=== PATIENT | male | born 1995 | race Caucasian/White ===

== ENCOUNTER 2021-07-12 10:32 | Emergency (ER) | payer MEDICAID, SELFPAY ==
--- NOTE | ~2021-07-12 | XR_ITS ---
EXAMINATION: XR KNEE, RIGHT CLINICAL INFORMATION: Pain status post injury COMPARISON: None TECHNIQUE: Four views of the right knee. FINDINGS: No acute visible fracture or dislocation. A fabella is noted in the posterior compartment. Joint spaces and alignment are maintained. Trace knee joint effusion. Soft tissues are unremarkable. XR/XR knee RT 4V IMPRESSION: 1. No acute visible fracture or dislocation. 2. Trace knee joint effusion.
[2021-07-12 11:41] VITALS: BP 138/83; PULSE 74; RESP 16; TEMP 36.3; O2SAT 97; BMI 46.2
--- NOTE | 2021-07-12 13:27 | ED.LOWEXIN ---
HPI - Extremity Injury (Lower) General Chief Complaint: Extremity Injury, Lower Stated Complaint: fall - rt knee pain Time Seen by Provider: 07/12/21 13:25 Source: patient Mode of arrival: ambulatory Limitations: no limitations History of Present Illness HPI Narrative: 26 years old male came in for evaluation of her right knee pain after fell a week ago. Patient is able to ambulate with bearing weight. Related Data Allergies Allergy/AdvReac Type Severity Reaction Status Date / Time No Known Allergies Allergy Unverified 11/18/19 16:54 Review of Systems Review of Systems: All other systems are reviewed and are negative Constitutional: Reports as per HPI and Reports no additional constitutional complaints Eyes: Reports as per HPI and Reports no additional eye complaints Reports system reviewed and no additional complaints, except as documented Cardiovascular: Reports as per HPI and Reports no additional cardiovascular complaints Respiratory: Reports as per HPI and Reports no additional respiratory complaints Gastrointestinal: Reports as per HPI and Reports no additional gastrointestinal complaints Genitourinary: Reports no additional female genitourinary complaints Musculoskeletal: Reports no additional musculoskeletal complaints Skin/Breast: Reports system reviewed and no additional complaints, except as docu Psychiatric: Reports no additional psychiatric complaints Endocrine: Reports no additional endocrine complaints Hematologic/Lymphatic: Reports no additional hematologic/lymphatic complaints Allergic/Immunologic: Reports no additional allergic/immunologic complaints Reports system reviewed and no additional complaints, except as documented and Reports Abnormal speech present [facility] Social History Social History Advance Directives: No Advance Directives Information Provided: No Physical Exam Vital Signs: Vital Signs: Last Vital Signs Temp 97.4 F 07/12/21 11:41 Pulse 74 07/12/21 11:41 Resp 16 07/12/21 11:41 BP 138/83 07/12/21 11:41 Pulse Ox 97 07/12/21 11:41 BMI result Body Mass Index 46.2 Vital signs have been reviewed as appeared to be correct. Blood pressure normal. Heart rate normal. Respiration rate normal. Temperature normal. Oxygen saturation normal. Appearance: Alert. Oriented X3. No acute distress. Head: Normal external exam. Normocephalic. Atraumatic. No Christianson signs noted. No raccoon eyes noted Eyes: PERRLA. EOMI. Conjunctiva and sclera normal. Eyelids normal. ENT: TM's Normal. Pharynx normal. Uvula midline. Moist mucous membranes. No trismus noted. No drooling noted. No muffled voice noted. Neck: Normal inspection. Neck supple. FROM. No adenopathy. Thyroid Normal. No meningeal signs. No neck mass noted. CVS: Normal heart rate and rhythm. Heart sound normal. No murmurs noted. Pulses normal throughout. Respiratory: No respiratory distress. Painless inspiration. Breath sounds normal. No wheezes/rales/rhonchi noted. Chest nontender. No accessory muscle usage noted or decreased air movement noted. Abdomen: Soft and nontender. Bowel sounds normal in all 4 quadrants. No distention noted. No organomegaly noted. No visible injury noted. Back: No CVA tenderness. Full range of motion noted. Skin: Skin warm and dry. Normal skin color. Normal skin turgor. No rashes/lesions/lacerations noted. Extremities: No lower extremity edema. Extremities exhibit normal range of motion. Extremities nontender. Right knee show no deformity, no swelling, no tenderness, stable ligamentous exam. Neuro: Oriented X 3. Cranial nerve exam: II-XII are grossly intact No motor deficit. No sensory deficit. Reflexes normal. Course Course Course Narrative: Assessment and plan. Came in after a fall a week ago for right knee pain, no radiographic evidence of fracture, normal ligamentous exam. Rest, ice application, NSAIDs. MDM - Extremity Injury (Lower) Imaging Data Right knee x-ray: Attestation: I personally reviewed and interpreted this imaging study as follows: Radiologist's impression: 1.? No acute visible fracture or dislocation. 2.? Trace knee joint effusion. ? Discharge Plan Discharge Clinical Impression: Contusion of knee, right Patient Disposition: Home, Self-Care Instructions: Contusion in Adults (ED) Additional Instructions: [id number] 200 mg ibuprofen tablet every 6 hours if needed for pain. Referrals: Physician,None [Primary Care Provider] - Stand Alone Forms: Work/School Release
== END 2021-07-12 13:58 | disposition home or self-care (01) ==
PROVIDERS: Emergency Provider Emergency Medicine
DX: S80.01XA Contusion of right knee, initial encounter (principal); W19.XXXA Unspecified fall, initial encounter; Y93.9 Activity, unspecified; Y92.9 Unspecified place or not applicable; Y99.9 Unspecified external cause status
CPT/HCPCS: 73564; 99283

== ENCOUNTER 2024-12-17 20:01 | Emergency (ER) | payer OTHER, SELFPAY ==
--- NOTE | ~2024-12-17 | CT_ITS ---
CLINICAL HISTORY: Recent Trauma; Swelling Hematoma; ? active bleeed --- Additional Notes or Special Instructions: ENTIRE LEFT LEG; HIP THROUGH ANKLE CT angiography examination of the left lower extremity with contrast. 3D post processing MIPS. Comparison: None provided. Findings: There is borderline bladder wall thickening. The bladder is mildly distended with fluid. Unremarkable prostate gland. Subcentimeter short axis left inguinal lymph nodes are present. The visualized portion of the left external iliac artery appears patent without focal luminal stenosis or aneurysmal dilation. The left common femoral artery, left SFA, and left popliteal artery appear patent without focal luminal stenosis or aneurysmal dilation. The left femoral profunda artery also appears patent. There is limited evaluation of the left lower extremity arterial runoff vessels related to suboptimal contrast opacification. The left anterior tibial artery and left peroneal artery are visualized to the level of the proximal left calf. The left posterior tibial artery is visualized to the mid left calf. There is gradual decrease in enhancement at these sites. Edema identified within the left lower extremity soft tissues with an irregular fluid collection within the subcutaneous soft tissues along the anterolateral aspect of the mid left thigh, measuring up to approximately 11.0 x 5.0 x 10.8 cm in maximum dimensions. Small, irregular foci of increased attenuation are identified within the musculature at the anterior compartment of the left thigh, visualized on axial image number 58 of series 5. There is a vague, irregular area of decreased attenuation within the musculature in this region. No acute fracture or dislocation injury identified. Impression: 1. Widely patent left lower extremity arterial outflow vessels with limited evaluation of the left lower extremity arterial runoff vessels related to suboptimal contrast opacification as described above. There is a small, irregular area of increased attenuation within the musculature of the left anterolateral thigh which may be related to an underlying vascular injury and/or bleeding, possibly related to a branch of the left femoral profunda artery given the location. There is also a small to moderate ill-defined area of decreased attenuation within the musculature of the left anterolateral thigh in this region, possibly consistent with a subtle hematoma. This is difficult to measure given its poor delineation. 2. Edema identified within the left lower extremity soft tissues with a focal, irregular fluid collection within the subcutaneous soft tissues at the anterolateral aspect of the mid left thigh, measuring up to approximately 11.0 x 5.0 x 10.8 cm in maximum dimensions. This is nonspecific but may represent a hematoma. This document has been electronically signed by: Abram Hightower MD on 12/18/2024 02:21:00
[2024-12-17 20:03] VITALS: BP 150/98; PULSE 73; RESP 20; TEMP 36.6; O2SAT 98; BMI 39.8
--- OUTSIDE RECORDS SUMMARY | 2024-12-17 21:21 | XMS_ITS | Encounter Summary ---
Author Organization [facility] Address [address] [place] [address] Phone Care Team Providers Care County Surveyor Name Role Phone Joseph Kimball MD Primary Care Provider Mika guerrreo Encounter Details Date Type Department Care Team (Late st Contact Info) Description 08/02/2013 Documentation [facility] [place] Family Medicine [address] [place] [address] Family Medicine, Physician [address] [place] [address] Social History Tobacco Use Types Packs/Day Years Used Date Smoking Tobacco: Never Assessed Sex and Gender Information Value Date Recorded Sex Assigned at Not on file Legal Sex Male 4:53 PM EDT Gender Identity Not on file Sexual Orientation Not on file documented as of this encounter Plan of Treatment Not on file documented as of this encounter Visit Diagnoses Not on filedocumented in this encounter Care Teams County Surveyor Relationship Specialty Start Date End Date Joseph Kimball MD PCP - General 10/11/16 06/12/22 documented as of this encounter
--- OUTSIDE RECORDS SUMMARY | 2024-12-17 21:21 | XMS_ITS | Encounter Summary ---
Author Organization [facility] Address [address] [place] [address] Phone Care Team Providers Care Carpenter General Name Role Phone Joseph Kimball MD Primary Care Provider Mika guerrero Encounter Details Date Type Department Care Team (Late st Contact Info) Description 08/16/2013 [place] [facility] [place] [facility] [place] [address] [place] [address] Family Medicine, Physician [address] [place] [address] Social History Tobacco Use Types Packs/Day Years [...] on filedocumented in this encounter Care Teams Carpenter General Relationship Specialty Start Date End Date Joseph Kimball MD PCP - General 10/11/16 06/12/22 documented as of this encounter
--- OUTSIDE RECORDS SUMMARY | 2024-12-17 21:21 | XMS_ITS | Encounter Summary ---
Author Organization [facility] Address [address] [place] [address] Phone Care Team Providers Care Director Payer Name Role Phone Joseph Kimball MD Primary Care Provider Mika guerrero Encounter Details Date Type Department Care Team (Late st Contact Info) Description 08/09/2013 Documentation [facility] [place] Family Medicine [address] [place] [address] Family Medicine, Physician [address] [place] [address] Social History Tobacco Use Types Packs/Day Years [...] on filedocumented in this encounter Care Teams Director Payer Relationship Specialty Start Date End Date Joseph Kimball MD PCP - General 10/11/16 06/12/22 documented as of this encounter
--- OUTSIDE RECORDS SUMMARY | 2024-12-17 21:21 | XMS_ITS | Encounter Summary ---
Author Organization [facility] Address [address] [place] [address] Phone Care Team Providers Care Executive Community Planning Name Role Phone Joseph Kimball MD Primary Care Provider Mika guerrero Encounter Details Date Type Department Care Team (Late st Contact Info) Description 12/17/2010 Documentation [facility] [place] [address] [place] [address] Family Medicine, Physician [address] [place] [address] Social History Tobacco Use Types Packs/Day Years [...] on filedocumented in this encounter Care Teams Executive Community Planning Relationship Specialty Start Date End Date Joseph Kimball MD PCP - General 10/11/16 06/12/22 documented as of this encounter
--- OUTSIDE RECORDS SUMMARY | 2024-12-17 21:21 | XMS_ITS | Encounter Summary ---
Author Organization [facility] Address [address] [place] [address] Phone Care Team Providers Care Medical Equipment Technician Name Role Phone Joseph Kimball MD Primary Care Provider Mika guerrero Encounter Details Date Type Department Care Team (Late st Contact Info) Description 08/18/2012 Documentation [facility] [place] Family Medicine [address] [place] [address] Family Medicine, Physician [address] [place] [address] Social History Tobacco Use Types Packs/Day Years [...] on filedocumented in this encounter Care Teams Medical Equipment Technician Relationship Specialty Start Date End Date Joseph Kimball MD PCP - General 10/11/16 06/12/22 documented as of this encounter
--- OUTSIDE RECORDS SUMMARY | 2024-12-17 21:21 | XMS_ITS | Encounter Summary ---
Author Organization [facility] Address [address] [place] [address] Phone Care Team Providers Care Telephone Surveyor Name Role Phone Joseph Kimball MD Primary Care Provider Mika guerrero Encounter Details Date Type Department Care Team (Late st Contact Info) Description 07/20/2010 Documentation [facility] [place] [address] [place], [place] [id number] Family Medicine, Physician [address] [place] [address] Social History Tobacco Use Types Packs/Day Years [...] on filedocumented in this encounter Care Teams Telephone Surveyor Relationship Specialty Start Date End Date Joseph Kimball MD PCP - General 10/11/16 06/12/22 documented as of this encounter
--- OUTSIDE RECORDS SUMMARY | 2024-12-17 21:21 | XMS_ITS | Encounter Summary ---
Author Organization [facility] Address [address] [place] [address] Phone Care Team Providers Care Spanish Translator Name Role Phone Joseph Kimball MD Primary Care Provider Mika guerrero Encounter Details Date Type Department Care Team (Late st Contact Info) Description 09/13/2011 Documentation [facility] [place] Medicine [address] [place] [address] Family Medicine, Physician [address] [place] [address] Social History Tobacco Use Types Packs/Day Years [...] on filedocumented in this encounter Care Teams Spanish Translator Relationship Specialty Start Date End Date Joseph Kimball MD PCP - General 10/11/16 06/12/22 documented as of this encounter
--- OUTSIDE RECORDS SUMMARY | 2024-12-17 21:21 | XMS_ITS | Encounter Summary ---
Author Organization [facility] Address [address] [place] [address] Phone Care Team Providers Care Can Doffer Name Role Phone Joseph Kimball MD Primary Care Provider Mika guerrero Encounter Details Date Type Department Care Team (Late st Contact Info) Description 10/11/2015 Documentation [facility] [place] [address] [place], [place] [phone] Family Medicine, Physician [address] [place] [address] Social History Tobacco Use Types Packs/Day Years Used Date Smoking Tobacco: Never Comments:Never smoker Sex and Gender Information Value Date Recorded Sex Assigned at Not on file Legal Sex Male 4:53 PM EDT Gender Identity Not on file Sexual Orientation Not on file documented as of this encounter Plan of Treatment Not on file documented as of this encounter Visit Diagnoses Not on filedocumented in this encounter Care Teams Can Doffer Relationship Specialty Start Date End Date Joseph Kimball MD PCP - General 10/11/16 06/12/22 documented as of this encounter
--- OUTSIDE RECORDS SUMMARY | 2024-12-17 21:21 | XMS_ITS | Clinical Summary ---
Author Organization [facility] Address [address] [place] [phone] Phone Care Team Providers Care Integration Technician Name Role Phone Unavailable Primary Care Provider Unavailabl e Allergies No known active allergies Medications No known medications Active Problems Problem Noted Date Diagnosed Date Childhood obesity 07/30/2013 Migraine 08/29/2011 Pes planus 08/29/2011 Immunizations Immunization Administration Dates Next Due DTP 1997,1997,1997 DTaP 5 07/17/2001,10/19/1998 H1N1 03/07/2009 HPV Vaccine 9 Valent 10/10/2015 HPV, Quadrivalent 07/30/2013 Hep A, ped/adol 10/10/2015,07/30/2013 Hep B, ped/adol 1997,1997,1997 Hib (PRP-T) 10/19/1998, 8,1997, 998 IPV 07/15/2002, 9,1997, 998 Influenza Split 03/09/2010 Influenza, injectable, trivalent 03/07/2009,04/2008 MMR 05/11/2001,06/01/1998 Meningococcal Conj (Menactra) MCV4P 10/10/2015,0 03/04/2008 Tdap 03/04/2008 Varicella 03/04/2008,05/18/1999 Family History Relation Name Status Comments Brother 1 Brother: ADD/AD HD, ADD/ADHD Brother 2 Alive Brother: ADD/AD HD, ADD/ADHD Father Alive Father: Alive a nd well Maternal Grandmother Materna l grandmother: Deafness, Hyperlipidemia Mother Alive Mother: Asthma, Asthma Other Family history of Elevated cholesterol, Family history of Migraines, Family history of Diabetes mellitus type 2, Family history of Sudden /ND under age 55, Family history of Obesity Paternal Grandmother Paterna l grandmother: Diabetes mellitus Sister Sister: Migrain es Social History Tobacco Use Types Packs/Day Years Used Date Smoking Tobacco: Never Comments:Never smoker Sex and Gender Information Value Date Recorded Sex Assigned at Not on file Legal Sex Male 4:53 PM EDT Gender Identity Not on file Sexual Orientation Not on file Last Filed Vital Signs Vital Sign Reading Time Taken Comments Blood Pressure 121/68 02/07/2017 9:37 AM EST Pulse 100 02/07/2017 9:37 AM EST Temperature 36.7 C (98 F) 02/07/2017 9:37 AM EST Respiratory Rate - - Oxygen Saturation - - Inhaled Oxygen Concentration - - Weight 158 kg (347 lb 4 oz) 02/07/2017 9:[address] Height 180.3 cm (5' 11 ) 10/10/2015 12:00 AM EDT Body Mass Index 48.43 10/10/2015 12:00 AM EDT Plan of Treatment Health Maintenance Due Date Last Done Comments HPV Vaccines (3 - Male 3-dose series) 01/02/2016 10/10/2015, 07/30/2013 DTaP,Tdap,and Td Vaccines (7 - Td or Tdap) 03/04/2018 03/04/2008, 07/17/2001, 10/19/1998, Additional history exists Influenza Vaccines (#1) 2024 03/09/19 11, 03/07/2009, 03/04/2008 COVID-19 Vaccine ( season) 2024 Hepatitis B Vaccines Completed 1997, 1997, 1997 HIB Vaccines Completed 10/19/1998, 03/1997, 1997, Additional history exists MMR Vaccines Completed 05/11/2001, 06/01/1998 IPV Vaccines Completed 07/15/2002, 10/01, 1997, Additional history exists Varicella Vaccines Completed 03/04/2008, 05/18/1999 Hepatitis A Vaccines Completed 10/10/2015, 07/31/19 14 Meningococcal Vaccine Completed 10/10/2015, 009 Men B Vaccine Aged Out No longer elig ible based on patient's age to complete this topic Pneumococcal Vaccine Aged Out No long er eligible based on patient's age to complete this topic Insurance [facility] NON PCC [facility] PPO
--- OUTSIDE RECORDS SUMMARY | 2024-12-17 21:21 | XMS_ITS ---
Author Name [facility] Organization Unknown History of Medication Use Medication Directions Dispensed Refills Start Date End Date Stat us methocarbamol 12/12/2024 active Encounters Encounter Type Encounter Reason Primary Diagnosis Location Date Ambulatory TBE Encounter for re moval of sutures [facility] 12/12/2024 Care Team Organization Name Specialty Phone Email Start Date End Da te [facility] 12/16/2024 [facility] 12/12/2024
--- OUTSIDE RECORDS SUMMARY | 2024-12-17 21:21 | XMS_ITS | Encounter Summary ---
Author Organization [facility] Address [address] [place] [address] Phone Care Team Providers Care Regulatory Scientist Name Role Phone Joseph Kimball MD Primary Care Provider Mika guerrero Encounter Details Date Type Department Care Team (Late st Contact Info) Description 08/30/2011 Documentation [facility] [place] Family Medicine [address] [place] [address] Family Medicine, Physician [address] [place] [address] Social History Tobacco Use Types Packs/Day Years [...] on filedocumented in this encounter Care Teams Regulatory Scientist Relationship Specialty Start Date End Date Joseph Kimball MD PCP - General 10/11/16 06/12/22 documented as of this encounter
--- OUTSIDE RECORDS SUMMARY | 2024-12-17 21:21 | XMS_ITS | Encounter Summary ---
Author Organization [facility] Address [address] [place] [address] Phone Care Team Providers Care Analytics Consultant Name Role Phone Joseph Kimball MD Primary Care Provider Mika guerrero Encounter Details Date Type Department Care Team (Late st Contact Info) Description 07/20/2010 Documentation [facility] [place] Family Medicine [address] [place], [place] [phone] Family Medicine, Physician [address] [place] [address] Social History Tobacco Use Types Packs/Day Years [...] on filedocumented in this encounter Care Teams Analytics Consultant Relationship Specialty Start Date End Date Joseph Kimball MD PCP - General 10/11/16 06/12/22 documented as of this encounter
--- OUTSIDE RECORDS SUMMARY | 2024-12-17 21:21 | XMS_ITS | Encounter Summary ---
Author Organization [facility] Address [address] [place] [address] Phone Care Team Providers Care Teasel Gig Operator Name Role Phone Joseph Kimball MD Primary Care Provider Mika guerrero Encounter Details Date Type Department Care Team (Late st Contact Info) Description 10/10/2015 Documentation [facility] [place] [address] [place], [place] [phone] Family Medicine, Physician [address] [place] [address] Social History Tobacco Use Types Packs/Day Years [...] on filedocumented in this encounter Care Teams Teasel Gig Operator Relationship Specialty Start Date End Date Joseph Kimball MD PCP - General 10/11/16 06/12/22 documented as of this encounter
--- OUTSIDE RECORDS SUMMARY | 2024-12-17 21:21 | XMS_ITS | Encounter Summary ---
Author Organization [facility] Address [address] [place] [address] Phone Care Team Providers Care Social Services Analyst Name Role Phone Joseph Kimball MD Primary Care Provider Mika guerrero Encounter Details Date Type Department Care Team (Late st Contact Info) Description 10/19/2012 Documentation [facility] [place] Family Medicine [address] [place] [address] Family Medicine, Physician [address] [place] [address] Social History Tobacco Use Types Packs/Day Years [...] on filedocumented in this encounter Care Teams Social Services Analyst Relationship Specialty Start Date End Date Joseph Kimball MD PCP - General 10/11/16 06/12/22 documented as of this encounter
--- OUTSIDE RECORDS SUMMARY | 2024-12-17 21:21 | XMS_ITS | Encounter Summary ---
Author Organization [facility] Address [address] [place] [address] Phone Care Team Providers Care Wallcovering Texturer Name Role Phone Joseph Kimball MD Primary Care Provider Mika guerrero Encounter Details Date Type Department Care Team (Late st Contact Info) Description 08/30/2011 Documentation [facility] [place] [address] [place] [address] Family Medicine, Physician [address] [place] [address] Social History Tobacco Use Types Packs/Day Years [...] on filedocumented in this encounter Care Teams Wallcovering Texturer Relationship Specialty Start Date End Date Joseph Kimball MD PCP - General 10/11/16 06/12/22 documented as of this encounter
--- OUTSIDE RECORDS SUMMARY | 2024-12-17 21:21 | XMS_ITS | Encounter Summary ---
Author Organization [facility] Address [address] [place] [address] Phone Care Team Providers Care Sleep Lab Technologist Name Role Phone Joseph Kimball MD Primary Care Provider Mika guerrero Encounter Details Date Type Department Care Team (Late st Contact Info) Description 10/10/2015 Documentation [facility] [place] Family Medicine [address] [place], [place] [phone] Family Medicine, Physician [address] [place] [address] Social History Tobacco Use Types Packs/Day Years [...] on filedocumented in this encounter Care Teams Sleep Lab Technologist Relationship Specialty Start Date End Date Joseph Kimball MD PCP - General 10/11/16 06/12/22 documented as of this encounter
--- OUTSIDE RECORDS SUMMARY | 2024-12-17 21:21 | XMS_ITS | Encounter Summary ---
Author Organization [facility] Address [address] [place] [address] Phone Care Team Providers Care Grand Jury Deputy Sheriff Name Role Phone Joseph Kimball MD Primary Care Provider Mika guerrero Encounter Details Date Type Department Care Team (Late st Contact Info) Description 10/12/2015 Documentation [facility] [place] [address] [place], [place] [phone] Family Medicine, Physician [address] [place] [address] Social History Tobacco Use Types Packs/Day Years [...] on filedocumented in this encounter Care Teams Grand Jury Deputy Sheriff Relationship Specialty Start Date End Date Joseph Kimball MD PCP - General 10/11/16 06/12/22 documented as of this encounter
--- OUTSIDE RECORDS SUMMARY | 2024-12-17 21:21 | XMS_ITS | Encounter Summary ---
Author Organization [facility] Address [address] [place] [address] Phone Care Team Providers Care Machine Welder Name Role Phone Joseph Kimball MD Primary Care Provider Mika guerrero Encounter Details Date Type Department Care Team (Late st Contact Info) Description 08/30/2011 Documentation [facility] Family Medicine [address] [place] [address] Family Medicine, Physician [address] [place] [address] Social History Tobacco Use Types Packs/Day Years [...] on filedocumented in this encounter Care Teams Machine Welder Relationship Specialty Start Date End Date Joseph Kimball MD PCP - General 10/11/16 06/12/22 documented as of this encounter
--- OUTSIDE RECORDS SUMMARY | 2024-12-17 21:22 | XMS_ITS | Encounter Summary ---
Author Organization [facility] Address [address] [place] [address] Phone Care Team Providers Care Customer Counter Representative Name Role Phone Joseph Kimball MD Primary Care Provider Mika guerrero Encounter Details Date Type Department Care Team (Late st Contact Info) Description 10/12/2015 [place] [facility] [place] [address] [place], [place] [phone] Family Medicine, Physician [address] [place] [address] Social History Tobacco Use Types Packs/Day Years [...] on filedocumented in this encounter Care Teams Customer Counter Representative Relationship Specialty Start Date End Date Joseph Kimball MD PCP - General 10/11/16 06/12/22 documented as of this encounter
--- OUTSIDE RECORDS SUMMARY | 2024-12-17 21:22 | XMS_ITS | Encounter Summary ---
Author Organization [facility] Address [address] [place] [id number] Phone Care Team Providers Care Bag Hanger Name Role Phone Joseph Kimball MD Primary Care Provider Mika guerrero Encounter Details Date Type Department Care Team (Late st Contact Info) Description 07/20/2010 Documentation [facility] Family Medicine [address] [place], [place] [id number] Family Medicine, Physician [address] [place] [address] Social History Tobacco Use Types Packs/Day Years [...] on filedocumented in this encounter Care Teams Bag Hanger Relationship Specialty Start Date End Date Joseph Kimball MD PCP - General 10/11/16 06/12/22 documented as of this encounter
--- OUTSIDE RECORDS SUMMARY | 2024-12-17 21:22 | XMS_ITS | Encounter Summary ---
Author Organization [facility] Address [address] [place] [id number] Phone Care Team Providers Care Gill Tender Name Role Phone Joseph Kimball MD Primary Care Provider Mika guerrero Encounter Details Date Type Department Care Team (Late st Contact Info) Description 10/17/2016 Conversion Encounter [facility] - [address] [address] Social History Tobacco Use Types Packs/Day Years [...] on filedocumented in this encounter Care Teams Gill Tender Relationship Specialty Start Date End Date Joseph Kimball MD PCP - General 10/11/16 06/12/22 documented as of this encounter
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
[2024-12-17 23:36] LABS: MANUAL DIFF FLAG NO
[2024-12-17 23:37] LABS: Hematocrit 41.4 % (42.0-52.0); Hemoglobin 13.5 g/dl (14.0-18.0); Imm Gran Abs Auto 0.02 X10*3/uL (0.00-0.03); Imm Gran Pct Auto 0.2 % (0.0-0.4); Lymphocytes Absolute Auto 3.0 X10*3/uL (1.2-4.9); Mean Corpuscular HGB Conc 32.6 g/dl (31.0-36.0); Mean Corpuscular Hemoglobin 27.9 pg (27.0-33.0); Mean Corpuscular Volume 85.5 fL (80.0-98.0); NRBC Abs Auto 0.000 X10*3/uL (0.0-0.012); NRBC Pct Auto 0.0 /100WBC (0.0-0.2); Platelet Count 225 X10*3/uL (160-400); Red Blood Count 4.84 X10*6/uL (4.60-5.80); White Blood Count 12.2 X10*3/uL (4.8-10.8)
[2024-12-18 00:18] LABS: Alanine Aminotransferase 16 U/L (0-40); Albumin Level 4.2 g/dL (3.5-5.0); Alkaline Phosphatase 80 U/L (39-117); Anion Gap 10 (12-20); Aspartate Amino Transferase 18 U/L (5-37); Blood Urea Nitrogen 10 mg/dL (9-16); Calcium 8.9 mg/dL (8.4-10.2); Carbon Dioxide 25 mmol/L (22-29); Chloride 108 mmol/L (96-108); Creatinine Clr Calc Pharmacy 223.8; Estimated Glomerular Filt Rate > 60; Potassium 3.9 mmol/L (3.3-5.1); Sodium 139 mmol/L (135-145); Total Protein 6.7 g/dL (6.5-8.0)
[2024-12-18] MEDS: iohexoL 350 MG/ML 100 ML INFUS..BTL 85 ML IV (00:48)
[2024-12-18 03:26] VITALS: BP 125/76; PULSE 71; RESP 16; TEMP 36.9; O2SAT 99
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
[2024-12-18 03:44] VITALS: BP 125/76; PULSE 71; RESP 16; TEMP 36.9; O2SAT 99
== END 2024-12-18 03:50 | disposition short-term general hospital (02) ==
PROVIDERS: Physician Assistant; Emergency Provider Emergency Medicine
DX: R58 Hemorrhage, not elsewhere classified (principal); S70.12XA Contusion of left thigh, initial encounter; M79.605 Pain in left leg; V43.52XA Car driver injured in collision with other type car in traffic accident, initial encounter; Y93.9 Activity, unspecified; Y92.410 Unspecified street and highway as the place of occurrence of the external cause; Y99.8 Other external cause status
CPT/HCPCS: 36415; 73706; 80053; 85025; 99285; Q9967

== ENCOUNTER → 2024-12-18 | Outpatient (BNV) | payer OTHER, SELFPAY | PROVIDERS: Emergency Provider Emergency Medicine; Visit Provider Radiology Diagnostic Radiology | DX: R60.0 Localized edema (principal); M79.89 Other specified soft tissue disorders | CPT/HCPCS: 73706 ==